=== PATIENT | female | born 1980 | race Caucasian/White ===

== ENCOUNTER → 2020-04-03 | Outpatient (CLI) | payer OTHER, SELFPAY ==
[2020-04-09 04:51] LABS: HPV Reflexed? NOT INDICATED
== END | disposition home or self-care (01) ==
LOC: LABSPEC 15:42
PROVIDERS: PCP Family Medicine; Visit Provider Obstetrics & Gynecology
DX: Z12.4 Encounter for screening for malignant neoplasm of cervix (principal)
CPT/HCPCS: 88175; G0145

== ENCOUNTER 2020-04-22 10:48 | Day surgery (SDC) | payer OTHER, SELFPAY ==
--- NOTE | 2020-04-16 14:02 | EKG12_ITS ---
Test Reason : PREOP Blood Pressure : / mmHG Vent. Rate : 070 BPM Atrial Rate : 070 BPM P-R Int : 150 ms QRS Dur : 086 ms QT Int : 380 ms P-R-T Axes : 050 059 043 degrees QTc Int : 410 ms Normal sinus rhythm with sinus arrhythmia Normal ECG Confirmed by NIDIA DRAKE, NICKIE ([id number]), graphic editor NADEEM SALGADO ([id number]) on 04/17/2020 10:34:10 AM Referred By: Cristo Kauffman Confirmed By:NICKIE JACOB MD
[2020-04-18 14:37] LABS: Hematocrit 41.1 % (37-47); Hemoglobin 13.3 g/dL (12.0-15.0); Mean Corp Hgb Conc 32.4 g/dL (32-36); Mean Corpuscular Hgb 30.4 pg (27.0-32.0); Mean Corpuscular Volume 94.1 fL (81-99); Mean Platelet Vol. 9.8 fl (6.2-12.0); Platelet Count 393 K/mm3 (150-450); RBC Distribution Width CV 12.8 % (11.6-14.6); RBC Distribution Width SD 43.8 fl (35.1-43.9); Red Blood Count 4.37 M/mm3 (4.2-5.4); White Blood Count 8.8 K/mm3 (4.4-11.0)
[2020-04-18 14:45] LABS: International Normalized Ratio 0.9; Prothrombin Time (Protime)PT. 11.8 SECONDS (11.7-14.9)
[2020-04-18 14:46] LABS: Partial Thromboplast Time 23.1 Seconds (24.1-36.2)
[2020-04-18 14:50] LABS: Creatinine, Serum 0.81 mg/dL (0.55-1.02); EST Glomerular Filtration Rate 83 mL/min (>60); Est Glom Filt Rate - Afr Amer 100 mL/min (>60)
--- NOTE | 2020-04-21 21:02 | PCM.HP.BLA ---
History and Physical Date of Admission: 04/22/20 Surgical History and Physical Jen Choi, a 39 year old female 3 0 0 0 3, presents for Mini Laparotomy and LSO on April 22, 2020 at 1:00. -- Large Left Ovarian Dermoid -- 9 cm left cystic ovary by u/s and CT scan. Likely dermoid. MEDICATIONS HISTORY: Patient is also takin. No Meds ALLERGIES: VIcodin, Doxycycline, Rash all over body, Penicillins and Generalized rash Infections - Chicken pox childhood Illnesses - no serious past illnesses Accidents - no injuries of consequence Hospitalizations - Childbirth Review of Systems: GENERAL - Denies fever, or chills SKIN - Denies skin changes EYES - Denies visual changes EARS - Denies difficulty hearing NOSE - Denies nasal congestion or bleeding MOUTH - Denies sore throat or difficulty swallowing NECK - Denies pain or swelling RESPIRATORY - Denies shortness of breath or wheezing CARDIOVASCULAR - Denies palpitations or chest pain GASTROINTESTINAL - Denies nausea, vomiting, diarrhea, constipation GENITOURINARY - Denies dysuria, frequency of urination, incontinence of urine MUSCULOSKELETAL - Denies joint or muscle pain NEUROLOGICAL - Denies localized numbness or weakness PSYCHIATRIC - Denies depression or anxiety ENDOCRINE - Denies heat or cold intolerance, weight loss or gain HEMATO-IMMUNOLOGIC - Denies excesive bleeding with cuts SOCIAL HISTORY: Alcohol Use - drinks occasionally Smoking - Smokes--advised to quit Diet - no special diet Lifestyle - moderate stress lifestyle and single Exercise - active Seat Belt Use - always Employer - [employer] Job Description - ENGINEERING TECHNICAL SPECIALIST Illicit Drug Use - denies use of street drugs Sexual Activity - [employer] Hours Worked - 24 Children Name(s) - Jaden, '06 Blanca (marybeth)Ash Control - [place] FAMILY HISTORY: Family history of DM II. Father: Stroke. MENSTRUAL HISTORY: LMP Known?- DefiniteAmount/Duration - 3 days, Regularity - Regular, Frequency - 28 days, Prior Menses - 01/12/2005, LMP - 04/09/20, Age Onset Menarche - 15 PAST PREGNANCIES: Total Pregnancies - 3; Full Term Pregnancies - 3; Premature - 0; Abortions, Induced - 0; Abortions, Spontaneous - 0; Ectopics - 0; Multiple Births - 0; Living Children - 3 SURGICAL HISTORY: 1. 2008 Screw placed in pelvis 2. 10/01/2013 Essure Tubal ; Cristo Kauffman M.D. PHYSICAL EXAM BP- 124/74 Sitting, Right arm, regular cuff Weight- 181.18791 lbs Height- 65.25 inch BMI:29.95 CONSTITUTIONAL - NAD, well nourished, and well developed SKIN - No rash, lesions, or ulcers HEENT - Normocephalic, PERRLA, EOMI NECK - No nodes, no nuchal rigidity and thyroid normal size and texture LYMPH NODES - Palpation of lymph nodes in neck and groins within normal limits LUNGS - CTA x2 without wheezes, crackles or rales CARDIAC - Regular rate and rhythm without rubs, murmurs, or gallops BREAST - No dominant masses, no tenderness, no axillary adenopathy, no nipple discharge, no skin changes ABDOMEN - Without hepatosplenomegaly, distention, masses, rebound, or guarding; normal bowel sounds; no hernias EXTREMITIES - No edema or calf tenderness NEUROLOGICAL - Cranial nerves II-XII grossly intact PSYCHIATRIC - A and O to time, place, person, mood and affect External Genitial Vagina - non-tender without lesions Urethra/Urethral Meatus - non-tender Bladder - non-tender Vagina - vaginal dorsey are pink and moist without loss of rugae and no evidence of atropy Cervix - without cervical motion tenderness and has normal size and features without evident lesions Uterus - enlarged uterus 12 wks, wt 280-320 g Adnexa - clear without massess or tenderness ASSESSMENT/PLAN: Ovarian Cyst Ot/unspec Large ovarian cyst likely dermoid by CT, MRI and U/S. Normal uterus by u/s . Discussed options for treatment and will proceed with mini-laparotomy and LSO. Discussed RBAs and all questions answered.
[2020-04-22] VITALS (9 sets, daily range): BP systolic 84–127; BP diastolic 37–64; PULSE 58–74; RESP 16; TEMP 36.1–37.2; O2SAT 94–100; BMI 29.2
--- NOTE | 2020-04-22 | OV_PTH ---
PATIENT: TANO STEPHENS LOC: [facility] [place] U#:[id number] AGE/SX: 39/F ROOM: RE04/22/[address]: Dr. Cristo Kauffman MD : [id number] BED: DIS: 04/22/2020 SPEC #: [id number] RECD: 04/22/20 14:25 STATUS: ALETHA [place]LOTTE #: [id number] [place]: 04/22/20 00:[address]: Cristo Kauffman DEPT: SURGICAL PATHOLOGY RECD BY: Robin Centeno ENTERED: 04/23/20 08:35 SP TYPE: OVARY OTHR DR: Dr. Mary Ervin MD Tissues: Left ovary Procedures: Surgery Specimen Level V HEADER OPERATION: Laparotomy, salpingo-oophorectomy PRE-OP DIAGNOSIS: Ovarian cyst TISSUE SUBMITTED: Left ovary and fallopian tube, right fallopian tube MICROSCOPIC DIAGNOSIS Left ovary and fallopian, salpingo-oophorectomy: Mature cystic teratoma (dermoid cyst). Corpus luteal cysts. Fallopian tube with no pathologic change. AM:connor 04/24/20 MICROSCOPIC DESCRIPTION Slides are reviewed. GROSS DESCRIPTION Received in fixative is one container labeled with the patient's name and designated left ovary, right fallopian tube, left fallopian tube. The specimen consists of a cystic ovary identified as left and adjacent left fallopian tube and detached fallopian tube identified as right. The right fallopian tube measures 4 cm in length and 0.7 cm in diameter. The fimbrial end is identified. Sections reveal unremarkable cut surfaces. The left fallopian tube is similar appearance to right and measures 4.5 cm in length and 0.8 cm in diameter. No tubo-ovarian adhesions are noted. The cystic left ovary weighs 319 gm and measures 10 x 10 x 8 cm. The outer surface is smooth. The ovary is inked as follows: resection margin - black, rest of the surface - blue. Sections of the cystic ovary reveal it is filled with yellowish sebum-like material and multiple cysts. The cyst wall measures 0.1 to 0.2 cm in thickness. No solid area is identified. Laboratory Analyst sections are submitted in eight cassettes as follows: 1 & 2 - fallopian tube, 3-8 - ovary. / SJ:connor 04/23/20 TC:1 CPT:
[2020-04-22 11:19] LABS: Internal QC Validated? YES +Cl - CLEAR BKGD; Pregnancy, Urine Negative Negative
[2020-04-22] MEDS: Lactated Ringers 1,000 ML 100 ML IV ×3 (11:33→14:25)
[2020-04-22] MEDS: Cefotetan 2 GM in 0.9% NS 100 ML IV (11:57)
--- NOTE | 2020-04-22 13:16 | PCM.DC.AHY ---
Discharge Diet: No Restrictions Discharge Activity: Return to Normal Activity - do what you feel comfortable, but do not over do it. You may climb stairs, just use caution and hold the railing., May Not Drive - for a few days or while taking narcotic pain medications., May Shower, May Take a Tub Bath May resume sexual activity in: 2 weeks, 6 weeks - nothing in the vagina. Lifting Restrictions: 25 pounds for 6 weeks. Call your doctor if your incision/area has: Continuous Slow Oozing, Sudden Increased Bleeding, Increased Pain/ Swelling, Increased Redness, Foul Smelling Discharge Call your doctor if you observe: Fever of 101 or Higher, Inability to urinate, Inability to have a bowel movement, Using more than one pad per hour, - - Some vaginal bleeding may be noted for up to 4-8 weeks. Cleanse incision/area with: - - Let the soapy water run over your incision, rinse and pat dry. Additional Dressing/Incision Instructions:: The white strips (Steri Strips) on your incision will fall off on their own. Allergies/Adverse Reactions: Allergies Penicillins Allergy (Verified 04/22/20 11:05) Rash acetaminophen [From Vicodin] Adverse Reaction (Verified 04/22/20 11:05) Upset Stomach hydrocodone [From Vicodin] Adverse Reaction (Verified 04/22/20 11:05) Upset Stomach Medications to take at Discharge Docusate Sodium [Colace] 100 mg PO BID PRN PRN #30 cap 04/22/20 Ibuprofen 800 mg PO Q8H PRN PRN #30 tab 04/22/20 Oxycodone [Oxyir] 5 mg PO Q6H PRN PRN 7 Days #14 tablet 04/22/20 The following prescriptions were given: Docusate Sodium [Colace] 100 mg PO BID PRN PRN #30 cap PRN Reason: Constipation Transmission Status: Pending to [facility] Ibuprofen 800 mg PO Q8H PRN PRN #30 tab PRN Reason: Pain Score 1-10/10 Transmission Status: Pending to [facility] Oxycodone [Oxyir] 5 mg PO Q6H PRN PRN 7 Days #14 tablet PRN Reason: Pain Score 6-10/10 Transmission Status: Sent to [facility] Primary Care Physician: Mary Ervin MD [Primary Care Provider] - Test Results: Test results from this visit will be discussed in further detail at your follow-up appointment, if applicable. Please Follow Up With: Cristo Kauffman MD - [phone] When: in 2 weeks, please call to make an appointment.
[2020-04-22] MEDS: oxyCODONE 5 MG Tablet PO (15:14)
--- NOTE | 2020-04-22 22:01 | PCM.OPRPT ---
Report of Operation Date of Procedure: 04/22/20 Pre-Operative Diagnosis: Large Left Ovarian Dermoid Cyst Post-Operative Diagnosis: Large Left Ovarian Dermoid Cyst Surgery/Procedure Performed:: Minilaparotomy and Left Salpingo-Oophorectomy and Right Salpingectomy Description of Surgical Findings:: 9 cm left dermoid cyst with normal-appearing right and left fallopian tube. Evidence of prior Essure procedure. Normal-appearing 6 cm uterus. Normal right ovary adult protective caseworker: Joe Hong Type of Anesthesia:: General - Endotracheal Anesthesiologist: Dipika Smith Specimen's removed: Left ovary and dermoid cyst, left and right fallopian tube Drains: Chopra to straight drain removed after surgery Estimated Blood Loss (mL): Minimal Fluids Replaced: Crystalloid Description of Procedure: Surgeon: Cristo Kauffman MD, FACOG Indications: This is a 39-year-old patient who his been having problems with an asymptomatic large left ovarian cyst. Ultrasound and CT scan suggest that this is a dermoid. The patient has had a prior Essure procedure for sterilization. Given this the patient desires that we proceed with the above procedure. She has been counseled regarding the risk and indications of this procedure including the possibility of bleeding, infection, and injury to surrounding structures such as bowel bladder. All questions were answered. Procedure: Patient was taken to the operating room where after induction of general anesthesia she was prepped and draped in the usual sterile fashion. A Chopra catheter was placed. The abdomen was entered through a small Pfannenstiel incision and peritoneal cavity was entered bluntly. The large left cyst was identified and brought through the incision using a Kiwi vacuum suction to avoid rupture and allow using the smallest incision possible. The infundibulopelvic ligaments were ligated x2 with 0 Vicryl suture incorporating the fallopian tube into this pedicle. Hemostasis was noted and the right fallopian tube and ovary were identified and the right fallopian tube was ligated at the mesosalpinx with 0 Vicryl suture. Hemostasis was again noted. Rectus abdominis muscles were reapproximated in the midline with interrupted 0 Vicryl suture. 0 PDS strata fix was used to close the fascia in a running fashion and subcutaneous tissue was copiously irrigated with saline solution before closing with 3-0 Vicryl suture. 3-0 Monocryl suture was then used in running fashion to reapproximate skin edges area and Steri-Strips placed across the incision. Patient tolerated the procedure well was taken to recovery room in satisfactory condition; sponge instrument and needle counts were all reportedly correct. Estimated blood loss for the case was minimal. Cefotan 2 g IV was given prior to beginning the operative procedure. There were no apparent complications of the surgery. Grafts/Implants Used: None - Complications None - Admit VTE Documentation VTE Present on Admission: Yes VTE Mechan Device Prophylaxis: SCD's
== END 2020-04-22 17:15 | disposition home or self-care (01) ==
LOC: SDC 10:49 → AC 10:52
PROVIDERS: Anesthesiology; PCP Family Medicine; Referring Provider Obstetrics & Gynecology; Visit Provider Obstetrics & Gynecology
PROC: (CPT 49000; principal; 2020-04-22 12:15)
DX: D27.1 Benign neoplasm of left ovary (principal); D28.2 Benign neoplasm of uterine tubes and ligaments; N83.12 Corpus luteum cyst of left ovary; Z11.59 Encounter for screening for other viral diseases; F17.200 Nicotine dependence, unspecified, uncomplicated
CPT/HCPCS: 58661; 36415; 81025; 82565; 85027; 85610; 85730; 86850; 86900; 86901; 87635; 88305; 88307; 93005; C9803; J7120; J2405; U0003